=== PATIENT | female | born 1960 | race Caucasian/White ===

== ENCOUNTER 2018-02-01 09:27 | Emergency (ER) | payer OTHER ==
[~2018-02-01] VITALS: Ht 160 cm; Wt 75.0 kg
[2018-02-01 09:35] VITALS: BP 141/85; PULSE 97; RESP 16; TEMP 98.7; O2SAT 98
[2018-02-01 10:14] VITALS: BP 141/86; PULSE 100; RESP 18; TEMP 98.4; O2SAT 95
[2018-02-01] MEDS ORDERED: AMOXICILLIN 875 MG TAB PO ONE (10:45)
[2018-02-01] MEDS ORDERED: NICOTINE 14 MG/24 HR PATCH T-DERMAL ONE (10:45)
[2018-02-01 10:49] LABS: AUTOMATED NEUTROPHIL # 5.6 TH/MM3 (1.8-7.7); BASOPHIL # 0.1 TH/MM3 (0-0.2); BASOPHIL % 0.9 % (0.0-2.0); EOSINOPHIL # 0.1 TH/MM3 (0-0.4); EOSINOPHIL % 0.7 % (0.0-4.0); HEMATOCRIT 46.7 % (35.0-46.0); HEMOGLOBIN 16.1 GM/DL (11.6-15.3); LYMPH % 18.8 % (9.0-44.0); LYMPHOCYTE # 1.4 TH/MM3 (1.0-4.8); MEAN CELL VOLUME 91.9 FL (80.0-100.0); MEAN CORPUSCULAR HEMOGLOBIN 31.6 PG (27.0-34.0); MEAN CORPUSCULAR HGB CONC 34.4 % (32.0-36.0); MEAN PLATELET VOLUME 7.9 FL (7.0-11.0); MONO % 4.5 % (0.0-8.0); MONOCYTE # 0.3 TH/MM3 (0-0.9); NEUT % 75.1 % (16.0-70.0); PLATELET COUNT 241 TH/MM3 (150-450); RED BLOOD COUNT 5.08 MIL/MM3 (4.00-5.30); RED CELL DISTRIBUTION WIDTH 13.8 % (11.6-17.2); WHITE BLOOD COUNT 7.5 TH/MM3 (4.0-11.0)
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
[2018-02-01 11:05] LABS: ALBUMIN 3.8 GM/DL (3.4-5.0); ALT (GPT) 22 U/L (10-53); AST (GOT) 11 U/L (15-37); BICARBONATE 20.5 MEQ/L (21.0-32.0); BLOOD UREA NITROGEN 22 MG/DL (7-18); CALCIUM 9.1 MG/DL (8.5-10.1); CHLORIDE 107 MEQ/L (98-107); CREATININE 0.89 MG/DL (0.50-1.00); GLOMERULAR FILTRATION RATE 65 ML/MIN (>89); GLUCOSE,RANDOM 91 MG/DL (74-106); SODIUM (NA) 139 MEQ/L (136-145)
[2018-02-01 11:15] LABS: ALKALINE PHOSPHATASE 109 U/L (45-117); TOTAL BILIRUBIN ADULT 0.3 MG/DL (0.2-1.0); TOTAL PROTEIN 6.7 GM/DL (6.4-8.2)
[2018-02-01 11:28] LABS: ACETAMINOPHEN LESS THAN 2.0 MCG/ML (10.0-30.0)
[2018-02-01 11:38] LABS: BILIRUBIN, URINE NEG (NEG); BLOOD, URINE NEG (NEG); GLUCOSE,URINE NEG (NEG); KETONE, URINE NEG (NEG); MUCUS URINE FEW /lpf (OCC); NITRITE,URINE NEG (NEG); PH, URINE 5.5 (5.0-8.5); SQUAMOUS EPITHELIAL CELL URINE 1 /hpf (0-5); URINE COLOR YELLOW (YELLW/STRAW); URINE LEUKOCYTE ESTERASE NEG (NEG)
[2018-02-01] MEDS ORDERED: LAMI200T PO (13:11)
[2018-02-01] MEDS ORDERED: HYDR12.57 PO (13:11)
[2018-02-01] MEDS ORDERED: ADDE20 PO (13:11)
[2018-02-01] MEDS ORDERED: KLON2TAB PO (13:11)
[2018-02-01] MEDS ORDERED: LEVO-86 PO (13:11)
[2018-02-01 14:06] VITALS: BP 131/86; PULSE 82; RESP 18; O2SAT 100
[2018-02-01] MEDS ORDERED: ACETAMINOPHEN 325 MG TAB PO ONE (14:45)
[2018-02-01 18:10] VITALS: BP 124/74; PULSE 76; RESP 16; O2SAT 97
[2018-02-01 22:24] VITALS: BP_SYST 97; BP_SYST 99; BP_DIAS 55; BP_DIAS 66; PULSE 77; PULSE 82; RESP 16; RESP 18; TEMP 98.1; TEMP 98.3; O2SAT 98
[2018-02-02 05:27] VITALS: BP 120/76; PULSE 85; RESP 16; TEMP 97.9; O2SAT 97
[2018-02-02] MEDS ORDERED: ACETAMINOPHEN 325 MG TAB PO ONE (11:30)
[2018-02-02 13:55] VITALS: BP 134/87; PULSE 87; RESP 18; O2SAT 98
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
--- NOTE | 2018-02-02 14:35 | PD ---
Physical Exam Date Seen by Provider: Feb 02, 2018 Time Seen by Provider: 14:32 Narrative For full history and physical examination please see previous notes. Data Data Last Documented VS Vital Signs Date Time Temp Pulse Resp B/P (MAP) Pulse Ox O2 Delivery O2 Flow Rate FiO2 02/02/18 13:55 87 18 134/87 (103) 98 Room Air 02/02/18 05:27 97.9 Orders Orders Complete Blood Count With Diff (02/01/18 10:22) Comprehensive Metabolic Panel (02/01/18 10:22) Thyroid Stimulating Hormone (02/01/18 10:22) Urinalysis - C+S If Indicated (02/01/18 10:22) Psych Screen (02/01/18 10:22) Drug Screen, Random Urine (02/01/18 10:22) Alcohol (Ethanol) (02/01/18 10:22) Salicylates (Aspirin) (02/01/18 10:22) Tylenol (Acetaminophen) (02/01/18 10:22) Nicotine 14 Mg Patch.24 Hr (Habitrol 14 (02/01/18 10:45) Amoxicillin (Trimox) (02/01/18 10:45) Acetaminophen (Tylenol) (02/01/18 14:45) Diet Regular Basic (02/01/18 Lunch) Diet Regular Basic (02/01/18 Dinner) Diet Regular Basic (02/02/18 Breakfast) Acetaminophen (Tylenol) (02/02/18 11:30) Diet Regular Basic (02/02/18 Lunch) Ed Discharge Order (02/02/18 14:31) Labs Laboratory Tests Test 02/01/18 10:30 02/01/18 10:56 White Blood Count 7.5 TH/MM3 Red Blood Count 5.08 MIL/MM3 Hemoglobin 16.1 GM/DL Hematocrit 46.7 % Mean Corpuscular Volume 91.9 FL Mean Corpuscular Hemoglobin 31.6 PG Mean Corpuscular Hemoglobin Concent 34.4 % Red Cell Distribution Width 13.8 % Platelet Count 241 TH/MM3 Mean Platelet Volume 7.9 FL Neutrophils (%) (Auto) 75.1 % Lymphocytes (%) (Auto) 18.8 % Monocytes (%) (Auto) 4.5 % Eosinophils (%) (Auto) 0.7 % Basophils (%) (Auto) 0.9 % Neutrophils # (Auto) 5.6 TH/MM3 Lymphocytes # (Auto) 1.4 TH/MM3 Monocytes # (Auto) 0.3 TH/MM3 Eosinophils # (Auto) 0.1 TH/MM3 Basophils # (Auto) 0.1 TH/MM3 CBC Comment DIFF FINAL Differential Comment Blood Urea Nitrogen 22 MG/DL Creatinine 0.89 MG/DL Random Glucose 91 MG/DL Total Protein 6.7 GM/DL Albumin 3.8 GM/DL Calcium Level 9.1 MG/DL Alkaline Phosphatase 109 U/L Aspartate Amino Transf (AST/SGOT) 11 U/L Alanine Aminotransferase (ALT/SGPT) 22 U/L Total Bilirubin 0.3 MG/DL Sodium Level 139 MEQ/L Potassium Level 4.2 MEQ/L Chloride Level 107 MEQ/L Carbon Dioxide Level 20.5 MEQ/L Anion Gap 12 MEQ/L Estimat Glomerular Filtration Rate 65 ML/MIN Thyroid Stimulating Hormone 3rd Gen 0.966 uIU/ML Salicylates Level 3.7 MG/DL Acetaminophen Level LESS THAN 2.0 MCG/ML Ethyl Alcohol Level LESS THAN 3 MG/DL Urine Color YELLOW Urine Turbidity CLEAR Urine pH 5.5 Urine Specific [place] 1.016 Urine Protein NEG mg/dL Urine Glucose (UA) NEG mg/dL Urine Ketones NEG mg/dL Urine Occult Blood NEG Urine Nitrite NEG Urine Bilirubin NEG Urine Urobilinogen LESS THAN 2.0 MG/DL Urine Leukocyte Esterase NEG Urine RBC LESS THAN 1 /hpf Urine WBC 1 /hpf Urine Squamous Epithelial Cells 1 /hpf Urine Mucus FEW /lpf Microscopic Urinalysis Comment CULT NOT INDICATED Urine Opiates Screen NEG Urine Barbiturates Screen NEG Urine Amphetamines Screen NEG Urine Benzodiazepines Screen NEG Urine Cocaine Screen POS Urine Cannabinoids Screen NEG [facility] Medical Record Reviewed: Yes Supervised Visit with IAIN: No Narrative Course Patient is a 57-year-old female presented voluntarily for psychiatric evaluation secondary to depression and suicidal ideations. Patient was seen and evaluated, medically cleared. She was then evaluated by the psychiatric nurse practitioner. Please see her documentation. Patient will be discharged home, her diagnosis is cocaine abuse. Diagnosis Primary Impression: Cocaine abuse Additional Impression: Substance induced mood disorder Referrals: [facility] Patient Instructions: General Instructions, Polysubstance Abuse (ED) Additional Instruction: Follow-up with Osmani Shelton Avoid use of cocaine Return to emergency department for any new or worsening symptoms Med/Other Pt SpecificInfo: No Change to Meds Disposition: 01 DISCHARGE HOME Condition: Stable Sho Soria Feb 02, 2018 14:35
== END 2018-02-02 15:18 | disposition home or self-care (01) ==
LOC: NEPJ 09:27
DX: F14.10 Cocaine abuse, uncomplicated (principal); F19.94 Other psychoactive substance use, unspecified with psychoactive substance-induced mood disorder; R45.851 Suicidal ideations; J44.9 Chronic obstructive pulmonary disease, unspecified; M32.9 Systemic lupus erythematosus, unspecified; F31.9 Bipolar disorder, unspecified; F43.10 Post-traumatic stress disorder, unspecified; Z72.0 Tobacco use; Z88.5 Allergy status to narcotic agent
CPT/HCPCS: 80053; 80307; 81001; 84443; 85025; 99283